=== PATIENT | female | born 1975 | race American Indian/Alaskan Native ===

== ENCOUNTER 2017-05-15 06:49 | Day surgery (SDC) | payer MEDICAID ==
[~2017-05-15 06:49] MED LIST: NACL 0.9% IR ONE
--- NOTE | 2017-05-15 08:09 | Discharge Summary ---
Short Stay Discharge Plan Activity: no restrictions Weight Bearing Status: Full Weight Bearing Diet: regular Wound: remove dressing (72hrs) Follow up with: PRIMARY CAREMD [Primary Care Provider] - 6 Weeks WORK,KATIE Fraser JR, MD [Staff Physician] - 7 Days
--- NOTE | 2017-05-15 08:11 | Short Stay Summary ---
Short Stay Documentation Date of service: 05/15/17 - Allergies and Medications Current Medications: Allergies hydrocodone bitartrate [From Vicodin] Allergy (Verified 07/09/15 11:31) Hives Home Medications Medication Instructions Recorded Confirmed Last Taken Type No Known Home Medications [No 05/09/17 05/09/17 Unknown History Reported Home Medications] - Brief post op/procedure progress note Date of procedure: 05/15/17 Pre-op diagnosis: Keloid of Umbilicus Post-op diagnosis: same Procedure: Excision of Keloid of Umbilicus 4cm Complex Closure 5cm Anesthesia: GETA Surgeon: KATIE GLASS JR Estimated blood loss: minimal Specimen disposition: to lab - Disposition Condition at discharge: Good Disposition: DC-[id number] TO HOME OR SELFCARE Short Stay Discharge Plan Follow up with: KATIE GLASS JR, MD [Staff Physician] - 7 Days PRIMARY CAREMD [Primary Care Provider] - 6 Weeks
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
--- NOTE | 2017-05-15 08:58 | Anesthesia Day of Surgery ---
Anesthesia Day of Surgery - Day of Surgery Patient Examined: Yes Patient H&P Reviewed: Yes Patient is NPO: Yes
[2017-05-15] MEDS ORDERED: DILAUDID IV PRN (08:59)
[2017-05-15] MEDS ORDERED: LACTATED RINGERS 1,000 ML IV SCH (09:00)
[2017-05-15] MEDS ORDERED: DIPRIVAN 10 MG/ML IV ONE (09:16)
[2017-05-15] MEDS ORDERED: XYLOCAINE MPF 2% ONE (09:17)
[2017-05-15] MEDS ORDERED: MARCAINE 0.5% 30 ML INFILTRATI ONE (09:25)
[2017-05-15] MEDS ORDERED: XYLOCAINE 1%/ EPI 1:100,000 INFILTRATI ONE (09:25)
[2017-05-15] MEDS ORDERED: VERSED IV NR (09:30)
[2017-05-15] MEDS ORDERED: PEPCID PO NR (09:30)
[2017-05-15] MEDS ORDERED: PERCOCET 5/325 PO PRN (09:30)
[2017-05-15] MEDS ORDERED: ZOFRAN IV PRN (09:30)
[2017-05-15] MEDS ORDERED: XYLOCAINE/EPI 1% 1:50,000 (OR) INFILTRATI ONE (09:35)
[2017-05-15] MEDS ORDERED: NACL 0.9% IR ONE (09:35)
[2017-05-15] MEDS ORDERED: MARCAINE 0.5% INFILTRATI ONE (09:35)
[2017-05-15] MEDS ORDERED: ZOFRAN ONE (10:21)
[2017-05-15] MEDS ORDERED: ANCEF/STERILE WATER 2 GM/20 ML IV NR (11:00)
[2017-05-15 13:36] VITALS: BP 107/79
--- NOTE | 2017-05-15 16:00 | Post Anesthesia Evaluation ---
- Post Anesthesia Evaluation Patient Participated: Yes Airway Patent: Yes Stable Respiratory Function: Yes Nausea/Vomiting: No Temp > 96.8F: Yes Pain Manageable: Yes Adequeate Hydration: Yes Anesthesia Complications: No
--- NOTE | 2017-05-15 17:00 | Operative Report ---
Operative Report Operative Report: 05/15/17 Preoperative diagnosis: Cheloid of umbilicus Postoperative diagnosis: Same Procedure: Excision benign neoplasm of abdomen (4 cm) Complex closure of abdomen 4 cm Surgeon: Darren Elias M.D. Description of procedure: Patient brought into the operating room and placed on table in the supine position. Following initiation of general anesthesia the abdomen was prepped with a Betadine solution and draped in the usual sterile manner. Local anesthesia consisting of quarter percent Marcaine with epinephrine was infiltrated surrounding the cheloid of the umbilicus. #15 blade scalpel was used to circumferentially excise the keloid in a semi-lunar manner followed by undermining and closure in layers using interrupted and running subcuticular 2- 0 Monocryl sutures. Mastisol & Steri-Strips and dressings applied patient tolerated procedure well and returned to recovery room in stable condition. Darren Elias M.D.
== END 2017-05-15 12:45 | disposition home or self-care (01) ==
LOC: OR 06:49
PROVIDERS: ATTEND Plastic Surgery
DX: L91.0 Hypertrophic scar (principal); D64.9 Anemia, unspecified; G47.33 Obstructive sleep apnea (adult) (pediatric); Z72.89 Other problems related to lifestyle; Z88.8 Allergy status to other drugs, medicaments and biological substances; Z83.3 Family history of diabetes mellitus; Z82.3 Family history of stroke; Z82.49 Family history of ischemic heart disease and other diseases of the circulatory system
CPT/HCPCS: 13101; 81025; 88305; J1170; J2250; J2405; J2704; J7120